=== PATIENT | female | born 1975 | race Caucasian/White ===

== ENCOUNTER 2018-04-29 00:08 | Outpatient (CLI) | payer MEDICAID, SELFPAY ==
--- NOTE | 2018-04-29 09:35 | DI.MAMMO_ITS ---
SYMPTOMS/DIAGNOSIS: ABNORMAL LEFT BREAST MAMMO, R92.8, 6-MO F/U LEFT BREAST MAMMOGRAM: Mammograms were interpreted according to the usual protocol including computer analysis with CAD system, tomosynthesis and C view imaging. Today's mammogram was obtained to evaluate an area of asymmetric density in the upper outer quadrant of the left breast seen on previous baseline examination of 10/21/2017. Findings are unchanged or less prominent on the current examination. The breasts are markedly heterogeneously radiodense. No new mass or clumped microcalcification is seen. CONCLUSION: No specific evidence of malignancy at this time. I would suggest that routine screening examinations resume with a bilateral mammogram in six months. Category 3, breast density category C. MQSA ASSESSMENT OF FINDINGS: Probably benign. Six month follow-up recommended. Category 3. Patient will receive a letter notifying them of these results. Bi-RADS category C. The breasts are heterogeneously dense, which may obscure small masses.
== END 2018-04-29 00:28 ==
PROVIDERS: PCP Family Medicine; Visit Provider Family Medicine
DX: Z12.31 Encounter for screening mammogram for malignant neoplasm of breast (principal); R92.8 Other abnormal and inconclusive findings on diagnostic imaging of breast; N60.82 Other benign mammary dysplasias of left breast
CPT/HCPCS: 77061; 77065; G0279

== ENCOUNTER 2018-05-25 22:08 | Emergency (ER) | payer MEDICAID, SELFPAY ==
[2018-05-25 22:13] VITALS: BP 144/99; PULSE 118; RESP 166; TEMP 36.8; O2SAT 99
--- NOTE | 2018-05-25 22:16 | DI.RAD_ITS ---
SYMPTOM/DIAGNOSIS: PAIN OVER 4TH KNUCKLE RIGHT HAND: Three views. There is a nondisplaced fracture involving the shaft of the right fourth metacarpal. No other acute fracture or dislocation is seen. The patient has a ring on her right ring finger which was unable to be removed. Mild osteoarthritic changes are seen in the hand and wrist. The findings are most marked at the interphalangeal joint of the thumb. IMPRESSION: Findings suggestive of a nondisplaced fracture involving the right fourth metacarpal.
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
--- NOTE | 2018-05-25 22:36 | DI.VRAD_ITS ---
Addendum created by Rashid Tirado MD on 05/25/2018 10:50:26 PM EST Sclerosis over the fourth metacarpal likely represents a chronic process or healed fracture. Consider CT to assess for cortical disruption or possible pathologic periosteal reaction. Initial report created on 05/25/2018 10:36:24 PM EST EXAM: XR Right Hand Complete, 3 or more Views EXAM DATE/TIME: 05/25/2018 10:23 PM CLINICAL HISTORY: 43 years old, female; Pain; Hand; Right; Patient HX: Pain over 4th knuckle; Additional info: PT could not remove ring TECHNIQUE: XR Right hand 3 or more views. COMPARISON: No relevant prior studies available. FINDINGS: Bones/joints: Small bony density seen within the joint space may represent a small avulsion fracture although an erosive arthritis could also have this appearance. Clinical correlation is recommended. No other evidence of fracture or dislocation. Soft tissues: There is soft tissue swelling at the region of the proximal interphalangeal joint of the right fourth finger. IMPRESSION: 1. There is soft tissue swelling at the region of the proximal interphalangeal joint of the right fourth finger. 2. Small bony density seen within the joint space may represent a small avulsion fracture although an erosive arthritis could also have this appearance. Clinical correlation is recommended. Dictated and Authenticated by: Rashid Tirado MD. Ordering:HERNESTO Gonzalez MD
[2018-05-25 23:06] VITALS: PULSE 110
== END 2018-05-25 23:16 | disposition home or self-care (01) ==
PROVIDERS: Emergency Provider Student in an Organized Health Care Education/Training Program; PCP Family Medicine
DX: S62.324A Displaced fracture of shaft of fourth metacarpal bone, right hand, initial encounter for closed fracture (principal); W50.0XXA Accidental hit or strike by another person, initial encounter
CPT/HCPCS: 26600; 73130; L3809

== ENCOUNTER 2018-06-23 10:09 | Outpatient (CLI) | payer MEDICAID, SELFPAY ==
--- NOTE | 2018-06-23 10:05 | DI.RAD_ITS ---
SYMPTOMS/DIAGNOSIS: FOLLOW UP RIGHT HAND: Three views. There has been no change in alignment of the fracture involving the right fourth metacarpal. No new fracture or dislocation is identified.
== END 2018-06-23 10:29 ==
PROVIDERS: PCP Family Medicine; Visit Provider Orthopaedic Surgery
DX: S62.324D Displaced fracture of shaft of fourth metacarpal bone, right hand, subsequent encounter for fracture with routine healing (principal)
CPT/HCPCS: 73130

== ENCOUNTER 2018-10-26 01:26 | Outpatient (CLI) | payer MEDICAID, SELFPAY ==
--- NOTE | 2018-10-26 13:08 | DI.MAMMO_ITS ---
SYMPTOM/DIAGNOSIS: SCREENING Z12.31 BILATERAL SCREENING MAMMOGRAM: Mammograms were interpreted according to the usual protocol including computer analysis with CAD system, tomosynthesis and C view imaging. Comparison is made with exams from 2018. The breasts are composed of heterogeneously dense fibroglandular tissue, breast density category C. No suspicious masses or suspicious microcalcifications are seen. There has been no significant change. IMPRESSION: Category 1, negative mammogram. Yearly screening mammography is recommended. Breast density category C. SA ASSESSMENT OF FINDINGS: Negative. Category 1. Patient will receive a letter notifying them of these results. Bi-RADS category C. The breasts are heterogeneously dense, which may obscure small masses.
== END 2018-10-26 01:46 ==
PROVIDERS: PCP Family Medicine; Visit Provider Family Medicine
DX: Z12.31 Encounter for screening mammogram for malignant neoplasm of breast (principal)
CPT/HCPCS: 77063; 77067

== ENCOUNTER 2019-11-01 08:27 | Outpatient (CLI) | payer MEDICAID, SELFPAY ==
--- NOTE | 2019-11-01 11:45 | DI.MAMMO_ITS ---
EXAM: MAMMO SCREENING CLINICAL HISTORY: screening, Z12.31, Z00.00-encounter for general adult medical exam TECHNIQUE: Bilateral full field digital CC and MLO mammographic images were obtained with 3D tomosyn thesis and utilizing computer aided detection (CAD). COMPARISON: Available for comparison. FINDINGS: Masses/Architectural Distortion: None seen. Microcalcifications: No suspicious pleomorphic-type are seen. Skin Thickening/Nipple Retraction: None. There is patient motion artifact on the right mediolateral oblique view. IMPRESSION: 1. There is patient motion artifact on the right mediolateral oblique view. 2. The patient should return for repeat right MLO view due to patient motion artifact. BI-RADS Category 0 - Assessment Incomplete: Need additional imaging evaluation Breast Density - Category C - Heterogeneously dense The mammogram demonstrates the patient's breast tissue is dense. Dense breast tissue is very common a nd is not abnormal but dense breast tissue can make it harder to find cancer on a mammogram. Also, de nse breast tissue may increase their breast cancer risk. This information about [facility] was provided to the patient to raise their awareness. Use this report when you speak wi th the patient about their risks for breast cancer, which includes their family history. At that time , you may recommend for more screening tests (Ultrasound or MRI) as they might be useful based on the ir risk. A negative radiographic report should not delay biopsy if a dominant or clinically suspicious mass is present. Up to ten percent of cancers are not identified on mammography. A negative report may reinforce clinical impression. Adenosis and dense breasts may obscure an underlying neoplasm. False positive reports average 6 to 10%. Patient will receive a letter notifying them of these results.
== END 2019-11-01 08:47 ==
PROVIDERS: PCP Family Medicine; Visit Provider Family Medicine
DX: Z12.31 Encounter for screening mammogram for malignant neoplasm of breast (principal); R92.8 Other abnormal and inconclusive findings on diagnostic imaging of breast
CPT/HCPCS: 77063; 77067

== ENCOUNTER 2019-11-03 02:09 | Outpatient (CLI) | payer MEDICAID, SELFPAY ==
--- NOTE | 2019-11-03 | DI.MAMMO_ITS ---
EXAM: MG MAMMO SCREEN CALL BACK UNI CLINICAL HISTORY: F/U MAMMO, MOTION ARTIFACT RT MEDIOLATERAL OBLIQUE VIEW TECHNIQUE: Right full field digital MLO mammographic images was obtained with 3D tomosynthesis and u tilizing computer aided detection (CAD) for patient motion artifact. COMPARISON: Available for comparison. FINDINGS: Masses/Architectural Distortion: None seen. Microcalcifications: No suspicious pleomorphic-type are seen. Skin Thickening/Nipple Retraction: None. IMPRESSION: 1. No significant interval change with no specific features of malignancy noted. 2. Unless there is more urgent need, screening mammography is recommended, as per [employer] guidelines. BI-RADS Category 1 - Negative Breast Density - Category C - Heterogeneously dense The mammogram demonstrates the patient's breast tissue is dense. Dense breast tissue is very common a nd is not abnormal but dense breast tissue can make it harder to find cancer on a mammogram. Also, de nse breast tissue may increase their breast cancer risk. This information about the result of the [facility] m[facility] report was provided to the patient to raise their awareness. Use this report when you speak wi th the patient about their risks for breast cancer, which includes their family history. At that time , you may recommend for more screening tests (Ultrasound or MRI) as they might be useful based on the ir risk. A negative radiographic report should not delay biopsy if a dominant or clinically suspicious mass is present. Up to ten percent of cancers are not identified on mammography. A negative report may reinforce clinical impression. Adenosis and dense breasts may obscure an underlying neoplasm. False positive reports average 6 to 10%. Patient will receive a letter notifying them of these results.
== END 2019-11-03 02:29 ==
PROVIDERS: PCP Family Medicine; Visit Provider Family Medicine
DX: Z12.31 Encounter for screening mammogram for malignant neoplasm of breast (principal); R92.8 Other abnormal and inconclusive findings on diagnostic imaging of breast; N64.59 Other signs and symptoms in breast
CPT/HCPCS: 77063; 77067

== ENCOUNTER 2020-10-13 03:55 | Outpatient (CLI) | payer MEDICAID, SELFPAY ==
[2020-10-13 11:09] LABS: ALT 29 U/L (14-59); AST 11 U/L (15-37); Albumin 3.8 g/dL (3.4-5.0); Alkaline Phosphatase 69 U/L (46-116); Anion Gap 9.6 mmol/L (3-11); BUN 10 mg/dL (7-18); Bilirubin, Total 0.6 mg/dL (0.2-1.0); CO2 25.4 mmol/L (21.0-32.0); CREATININE 0.7 mg/dL (0.55-1.02); Calcium 9.3 mg/dL (8.5-10.1); Calculated LDL 116 mg/dL (<100); Chloride 106 mmol/L (98-107); Cholesterol 176 mg/dL (<200); Glucose 86 mg/dL (74-106); HDL Cholesterol 43 mg/dL (40-60); Potassium 4.4 mmol/L (3.5-5.1); Sodium 141 mmol/L (136-145); Total Protein 6.8 g/dL (6.4-8.2); Triglyceride 88 mg/dL (<150)
== END 2020-10-13 03:56 | disposition home or self-care (01) ==
LOC: LBO 03:55
PROVIDERS: Family Medicine; PCP Nurse Practitioner Family; Visit Provider Nurse Practitioner Family
DX: Z00.00 Encounter for general adult medical examination without abnormal findings (principal); Z13.220 Encounter for screening for lipoid disorders
CPT/HCPCS: 36415; 80053; 80061

== ENCOUNTER 2020-10-16 16:57 | Outpatient (CLI) | payer MEDICAID, SELFPAY ==
--- NOTE | 2020-10-16 13:15 | DI.RAD_ITS ---
Exam(s) XR FINGER RT MIDDLE EXAM: XR FINGER RT MIDDLE CLINICAL HISTORY: Injury 1 year ago, still has joint deformity,swelling,m79.89. TECHNIQUE: 2D digital imaging was performed. COMPARISON: CR XR hand RT complete from 06/23/2018 FINDINGS: There is soft tissue swelling around the PIP joint. No evidence of acute fracture at this level. Th ere is a small calcific density immediately adjacent to the medial aspect of the head of the middle p halanx noted which measures approximately 1.8 x 1 cm. Correlation with site of tenderness is recomme nded. There is no acute fracture at this level. No significant osseous lesions. IMPRESSION: DATA REPOSITORY: RADIATION DOSE DELIVERED:
== END 2020-10-16 17:17 ==
PROVIDERS: PCP Nurse Practitioner Family; Visit Provider Nurse Practitioner Family
DX: M79.644 Pain in right finger(s) (principal); M79.89 Other specified soft tissue disorders
CPT/HCPCS: 73140

== ENCOUNTER 2020-10-27 09:10 | Outpatient (REF) | payer MEDICAID, SELFPAY ==
--- NOTE | 2020-10-27 09:00 | PAPFT_PTH ---
PATIENT: Sakina May LOC: [facility] U#:[id number] AGE/SX: 45/F ROOM: RE10/27/[address]: Torsten Guerin NP : 1975 BED: DIS: 10/27/2020 SPEC #: [id number] RECD: 10/27/20 12:53 STATUS: VAMSHI VALDES #: [id number] EMANUEL: 10/27/20 09:[address]: Torsten Guerin DEPT: [facility] Cytology RECD BY: Juany Vaz Tissues: 1 - CX/ENDOCX FOR PAP SMEARS Procedures: PAP THIN PREP/UVM Screening HPV DNA PROBE Comments: [id number]
== END 2020-10-27 09:11 | disposition home or self-care (01) ==
LOC: LBN 09:10
PROVIDERS: PCP Nurse Practitioner Family; Visit Provider Nurse Practitioner Family
DX: Z12.4 Encounter for screening for malignant neoplasm of cervix (principal); Z11.51 Encounter for screening for human papillomavirus (HPV)
CPT/HCPCS: 88142; 87624

== ENCOUNTER 2020-11-01 01:51 | Outpatient (CLI) | payer MEDICAID, SELFPAY ==
--- NOTE | 2020-11-01 06:45 | DI.MAMMO_ITS ---
Exam(s) MAMMO SCREENING EXAM: MAMMO SCREENING CLINICAL HISTORY: screening, Z12.39. TECHNIQUE: Bilateral full field digital CC and MLO mammographic images were obtained with 3D tomosyn thesis and utilizing computer aided detection (CAD). COMPARISON: Prior mammograms dating back to 2018, the most recent being October 2019. FINDINGS: The fibroglandular tissue pattern is again noted be dense, this decreasing the sensitivity of the sekou mogram for finding in underlying lesions. Asymmetric tissue posteriorly in the left breast seen on the MLO view is unchanged 2018. There are no new obvious spiculated masses nor malignant appearing microcalcification groups. There is no new significant architectural distortion nor skin thickening-retraction. IMPRESSION: Dense bilateral fibroglandular tissue. No obvious radiographic evidence of malignancy nor significan t change compared to the prior mammograms listed above. Given the density of this patient's fibroglandular tissue it might be prudent to consider screening b ilateral complete breast ultrasound BI-RADS Category 2 - Benign Findings Breast Density - Category C - Heterogeneously dense Breast density Category C or D implies that the patient has dense breast tissue. Dense breast tissue can make it harder to find cancer on a mammogram. Dense breast tissue is also associated with an incr eased risk of breast cancer. This information about the result of the mammogram report was provided to the patient to raise their awareness. Use this report when you speak with the patient about their risks for breast cancer, which includes their family history. At that time, you may recommend additional screening tests (Ultrasoun d or MRI) as these tests may add significant information. A negative radiographic report should not delay biopsy if a dominant or clinically suspicious mass is present. Up to ten percent of cancers are not identified on mammography. A negative report may reinforce clinical impression. Adenosis and dense breasts may obscure an underlying neoplasm. False positive reports average 6 to 10%. Patient will receive a letter notifying them of these results.
== END 2020-11-01 02:11 ==
PROVIDERS: PCP Nurse Practitioner Family; Visit Provider Nurse Practitioner Family
DX: Z12.31 Encounter for screening mammogram for malignant neoplasm of breast (principal); R92.8 Other abnormal and inconclusive findings on diagnostic imaging of breast
CPT/HCPCS: 77063; 77067

== ENCOUNTER 2020-12-25 08:41 | Outpatient (CLI) | payer MEDICAID, SELFPAY ==
--- NOTE | 2020-12-25 08:30 | DI.RAD_ITS ---
Exam(s) XR HAND RT COMPLETE EXAM: XR HAND RT COMPLETE CLINICAL HISTORY: history of right hand injury. TECHNIQUE: 2D digital imaging was performed. COMPARISON: CR XR FINGER RT MIDDLE from 10/16/2020 FINDINGS: There is still soft tissue swelling around the PIP joint of 3rd-middle finger with no evidence of acu te fracture this level although there is mild degenerative change in the proximal interphalangeal mary nt. Again noted is a small calcific density in the soft tissues adjacent to medial aspect head of the mid dle phalanx, unchanged in size and position. No new additional findings. No radiographic evidence o f osteomyelitis. IMPRESSION: DATA REPOSITORY: RADIATION DOSE DELIVERED:
== END 2020-12-25 08:42 | disposition home or self-care (01) ==
LOC: DIORS 08:41
PROVIDERS: PCP Nurse Practitioner Family; Visit Provider Physician Assistant Surgical
DX: S69.81XA Other specified injuries of right wrist, hand and finger(s), initial encounter (principal); M79.89 Other specified soft tissue disorders; X58.XXXA Exposure to other specified factors, initial encounter
CPT/HCPCS: 73130

== ENCOUNTER 2022-10-24 01:34 | Outpatient (CLI) | payer MEDICAID, SELFPAY ==
--- NOTE | 2022-10-24 08:28 | DI.MAMMO_ITS ---
Exam(s) MAMMO SCREENING EXAM: MAMMO SCREENING CLINICAL HISTORY: screening, Z12.39 TECHNIQUE: Mammograms were interpreted according to the usual protocol including computer analysis w [employer] CAD system, tomosynthesis and C-view imaging. COMPARISON: [id number] FINDINGS: The breasts are composed of heterogeneously dense fibroglandular densities, Breast Density category C . No suspicious masses or suspicious microcalcifications are seen. No skin thickening or abnormal axillary lymph nodes are seen. There has been no significant change from prior exams. IMPRESSION: BI-RADS Category 1, Negative mammogram. Yearly screening mammography is recommended. Breast Density Category C, heterogeneously Dense. The mammogram demonstrates the patient's breast tissue is dense. Dense breast tissue is very common a nd is not abnormal but dense breast tissue can make it harder to find cancer on a mammogram. Also, de nse breast tissue may increase breast cancer risk. This information about the result of the mammogram report was provided to the patient to raise their awareness. Use this report when you speak with the patient about their risks for breast cancer, which includes their family history. At that time, you may recommend additional screening tests (Ultrasound or MRI) as they might be useful based on their r isk. A negative radiographic report should not delay biopsy if a dominant or clinically suspicious mass is present. Up to ten percent of cancers are not identified on mammography. A negative report may reinforce clinical impression. Adenosis and dense breasts may obscure an underlying neoplasm. False positive reports average 6 to 10%.
== END 2022-10-24 01:54 ==
LOC: DI 01:34
PROVIDERS: PCP Nurse Practitioner Family; Visit Provider Nurse Practitioner Family
DX: Z12.31 Encounter for screening mammogram for malignant neoplasm of breast (principal)
CPT/HCPCS: 77063; 77067

== ENCOUNTER 2022-12-02 16:13 | Outpatient (REF) | payer MEDICAID, SELFPAY ==
[2022-12-02 21:20] LABS: Abs Immature Grans 0.02 10^3/uL (0.0-0.06); Absolute Basophil Count 0.05 10^3/uL (0.0-0.2); Absolute Eosinophil Count 0.04 10^3/uL (0.0-0.7); Absolute Lymphocyte Count 1.57 10^3/uL (1.2-3.4); Absolute Monocyte Count 0.79 10^3/uL (0.1-0.8); Basophils % 1.2; HCT 43.3 % (36.0-46.0); HGB 14.7 g/dL (11.2-15.7); Immature Grans % 0.5; Lymphocytes % 38.6; MCH 29.3 pg (27.0-33.0); MCHC 33.9 % (32.0-36.0); MCV 86 fL (80-95); MPV 11.5 fL (8.0-11.0); Monocytes % 19.4; Neutrophils % 39.3; Platelet Count 197 10^3/uL (130-400); RBC 5.02 10^6/uL (3.93-5.22); RDW 12.2 % (11.7-14.6); RDW-SD 38.8 fL; WBC 4.07 10^3/uL (4.4-10.8)
[2022-12-04 11:46] LABS: Lyme Ab w Rflx to Lyme Confirm Negative (Negative)
[2022-12-06 12:26] LABS: Anaplasma phagocytophilum Negative (Negative); B. miyamotoi PCR Negative (Negative); Babesia divergens/MO-1 Negative (Negative); Babesia duncani Negative (Negative); Babesia microti Negative (Negative); Ehrlichia chaffeensis Negative (Negative); Ehrlichia ewingii/canis Negative (Negative); Ehrlichia muris eauclairensis Negative (Negative)
== END 2022-12-02 16:14 | disposition home or self-care (01) ==
LOC: LBN 16:13
PROVIDERS: PCP Nurse Practitioner Family; Visit Provider Physician Assistant
DX: A69.29 Other conditions associated with Lyme disease (principal); R53.83 Other fatigue; R21 Rash and other nonspecific skin eruption; R50.9 Fever, unspecified; R51.9 Headache, unspecified
CPT/HCPCS: 87798; 85025; 86618

== ENCOUNTER → 2023-11-05 01:46 | Outpatient (CLI) | payer MEDICAID, SELFPAY ==
--- NOTE | 2023-11-05 07:00 | DI.MAMMO_ITS ---
Exam(s) MAMMO SCREENING EXAM: MAMMO SCREENING CLINICAL HISTORY: screening, Z12.39. TECHNIQUE: Bilateral full field digital CC and MLO mammographic images were obtained with 3D tomosyn thesis and utilizing computer aided detection (CAD). COMPARISON: Prior mammograms were reviewed. FINDINGS: The fibroglandular tissue pattern is again noted be moderately dense, this somewhat decreasing the se nsitivity of the mammogram for finding hidden underlying lesions. There are no obvious new spiculated masses nor malignant appearing microcalcification groups. There is no new significant architectural distortion nor skin thickening-retraction. IMPRESSION: Dense bilateral fibroglandular tissue. No obvious radiographic evidence of malignancy nor significan t change compared to prior mammograms dated back to 2018. BI-RADS Category 1 - Negative Breast Density - Category C - Heterogeneously dense Breast density Category C or D implies that the patient has dense breast tissue. Dense breast tissue can make it harder to find cancer on a mammogram. Dense breast tissue is also associated with an incr eased risk of breast cancer. This information about the result of the mammogram report was provided to the patient to raise their awareness. Use this report when you speak with the patient about their risks for breast cancer, which includes their family history. At that time, you may recommend additional screening tests (Ultrasoun d or MRI) as these tests may add significant information. A negative radiographic report should not delay biopsy if a dominant or clinically suspicious mass is present. Up to ten percent of cancers are not identified on mammography. A negative report may reinforce clinical impression. Adenosis and dense breasts may obscure an underlying neoplasm. False positive reports average 6 to 10%. Patient will receive a letter notifying them of these results.
== END ==
PROVIDERS: PCP Nurse Practitioner Family; Visit Provider Nurse Practitioner Family
DX: Z12.31 Encounter for screening mammogram for malignant neoplasm of breast
CPT/HCPCS: 77063; 77067

== ENCOUNTER 2024-11-23 02:07 | Outpatient (CLI) | payer MEDICAID, SELFPAY ==
--- NOTE | 2024-11-23 12:32 | DI.MAMMO_ITS ---
Exam(s) MAMMO SCREENING EXAM: MAMMO SCREENING CLINICAL HISTORY: screening,Z12.39 TECHNIQUE: Mammograms were interpreted according to the usual protocol including computer analysis with CAD system, tomosynthesis and C-view imaging. COMPARISON: 2017 through 2023 FINDINGS: The breasts are composed of heterogeneously dense fibroglandular densities, Breast Density category C. No suspicious masses or suspicious microcalcifications are seen. No skin thickening or abnormal axillary lymph nodes are seen. There has been no significant change from prior exams. IMPRESSION: BI-RADS Category 1, Negative mammogram. Yearly screening mammography is recommended. Breast Density: Category C - The breasts are heterogeneously dense, which may obscure small masses. Breast density Category C or D implies that the patient has dense breast tissue. Dense breast tissue can make it harder to find cancer on a mammogram. Dense breast tissue is also associated with an increased risk of breast cancer. This information about the result of the mammogram report was provided to the patient to raise their awareness. Use this report when you speak with the patient about their risks for breast cancer, which includes their family history. At that time, you may recommend additional screening tests (Ultrasound or MRI) as these tests may add significant information. A negative radiographic report should not delay biopsy if a dominant or clinically suspicious mass is present. Up to ten percent of cancers are not identified on mammography. A negative report may reinforce clinical impression. Adenosis and dense breasts may obscure an underlying neoplasm. False positive reports average 6 to 10%.
== END 2024-11-23 02:27 ==
LOC: DI 02:07
PROVIDERS: PCP Nurse Practitioner Family; Visit Provider Nurse Practitioner Family
DX: Z12.31 Encounter for screening mammogram for malignant neoplasm of breast (principal); R92.333 Mammographic heterogeneous density, bilateral breasts
CPT/HCPCS: 77063; 77067